=== PATIENT | female | born 1955 | race Caucasian/White ===

== ENCOUNTER 2023-07-06 08:42 | Emergency (ER) | payer OTHER ==
[~2023-07-06] VITALS: Ht 154.9 cm; Wt 80.7 kg
[2023-07-06 08:57] VITALS: BP 152/83; PULSE 86; RESP 20; TEMP 97.9; O2SAT 100
[2023-07-06] MEDS ORDERED: KETOROLAC 60 MG/2 ML VIAL IM ONE (09:35)
[2023-07-06] MEDS ORDERED: PRED50TA2 PO (10:43)
[2023-07-06] MEDS ORDERED: TRAM-748 PO (10:43)
[2023-07-06 10:48] VITALS: O2SAT 100
== END 2023-07-06 10:48 | disposition home or self-care (01) ==
LOC: MED 08:42
DX: M25.562 Pain in left knee (principal); M25.561 Pain in right knee; R07.89 Other chest pain; Z79.899 Other long term (current) drug therapy
CPT/HCPCS: 71045; 73560; 96372; 99284; J1885